=== PATIENT | female | born 1950 | race Caucasian/White ===

== ENCOUNTER 2018-07-22 13:17 | Emergency (ER) | payer MEDICARE ==
[~2018-07-22] VITALS: Ht 162.6 cm; Wt 52.3 kg
[2018-07-22 13:37] VITALS: Ht 162.6 cm; Wt 52.3 kg
[2018-07-22] MEDS ORDERED: VALIUM5 MG PO (16:15)
[2018-07-22] MEDS ORDERED: TORADOL10 MG PO (16:15)
[2018-07-22 16:39] VITALS: BP 179/101
== END 2018-07-22 16:40 | disposition home or self-care (01) ==
LOC: D.ER 13:17
DX: S52.502A Unspecified fracture of the lower end of left radius, initial encounter for closed fracture (principal); W18.30XA Fall on same level, unspecified, initial encounter; Y93.89 Activity, other specified; Y92.014 Private driveway to single-family (private) house as the place of occurrence of the external cause